=== PATIENT | female | born 1980 | race Caucasian/White ===

== ENCOUNTER 2018-01-07 02:56 | Emergency (ER) | payer OTHER ==
[2018-01-07 02:58] VITALS: BP 137/79; TEMP 36.4; O2SAT 98; Ht 167.6 cm
[2018-01-07 03:15] VITALS: PULSE 89
--- NOTE | 2018-01-07 03:32 | EMERGENCY ROOM VISIT NOTE ---
History Report prepared by Ryne: Hope Mejia Under the Supervision of: Dr. Diego Carrero M.D. First contact with patient: 02:58 Chief Complaint: ALCOHOL OVERDOSE Stated Complaint: ALCOHOL OVERDOSE History of Present Illness The patient is a 37 year old female who presents to the Emergency Room with complaints of an episode of alcohol overdose occurring prior to arrival. Per EMS , the patient was found on [facility] after being on a Work in Field tour. They report that she was stumbling around and someone called 911. The patient denies any injuries, drug use, and the chance of . HPI and ROS limited secondary to alcohol intoxication. Source of History: patient History Limited By: intoxication Onset: prior to arrival Position: other (global) Quality: other (alcohol overdose) Timing: other (episode) Note: The patient denies any injuries and any drug use. Review of Systems ROS limited secondary to patient intoxication and difficultly with redirection. Past Medical & Surgical Medical Problems: (1) No Known Active Medical Problems Family History No pertinent family history Social History Smoking Status: Current Every Day Smoker Alcohol Use: occasionally Marital Status: single Housing Status: lives alone Occupation Status: employed Current/Historical Medications No Active Prescriptions or Reported Meds Allergies Coded Allergies: No Known Allergies (Verified , 01/07/18) Physical Exam Vital Signs Date Time Temp Pulse Resp B/P (MAP) Pulse Ox O2 Delivery O2 Flow Rate FiO2 01/07/18 03:15 89 01/07/18 02:58 36.4 112 18 137/79 98 Room Air 01/07/18 02:58 98 Room Air Physical Exam GENERAL: Patient is heavily intoxicated. Difficulty redirecting. Smells of alcohol. Well appearing and in no acute distress. HEAD: No evidence of Trauma. AT/NC EYES: Injected conjunctiva. Normal EOM. Pupils equal/reactive. ENT: Mucous membranes moist, no nasal congestion. NECK: No step-offs, no adenopathy, no meningismus, trachea is midline. LUNGS: No dyspnea. Clear to auscultation and equal bilaterally. No wheeze, no rhonchi. HEART: Regular rate and rhythm. No murmurs, rubs, gallops appreciated. GI: Abdomen soft, nontender, no peritonitis. Bowel sounds positive. No masses appreciated. BACK: No midline tenderness, no stepoffs, no CVA tenderness EXTREMITIES: Normal motion all extremities, no cyanosis, no edema. NEUROLOGIC: Heavily intoxicated. Slurred speech. Awake, but not completely oriented. No acute motor or sensory deficits, no focal weakness, cranial nerves grossly intact. SKIN: No rash, no jaundice, no diaphoresis. Medical Decision & Procedures Laboratory Results 01/07/18 03:12 Test 01/07/18 03:12 Anion Gap 7.0 mmol/L (3-11) Estimated GFR () 120.2 Estimated GFR (Non- 103.7 BUN/Creatinine Ratio 15.1 (10-20) Calcium Level 7.7 mg/dl (8.5-10.1) Ethyl Alcohol mg/dL 230.0 mg/dl (0-3) Laboratory results as reviewed by me. ED Course 0301: The patient was evaluated in room A12B. A complete history and physical exam was performed. 0346: The patient's grandmother has arrived. 0347: Reevaluated the patient. Discussed results and discharge instructions with her and her grandmother: They verbalized understanding and agreement. The patient is ready for discharge. Medical Decision Differential: Alcohol Intoxication, Drug Intoxication, Electrolyte Abnormality, Trauma, Intracranial Event, Toxicological, Excited Delirium, Serotonin Syndrome , amongst other pathologies entertained. 37 yr old intoxicated beligerent female brought in by EMS after being found intoxicated on campus. Patient with no evidence nor history for trauma. Protecting airway and breathing comfortably throughout ED stay. EtOH positive. She was quite belligerent and non-cooperative but given her grandmother arrived who calmed her down i felt that no indication for sedation nor calling police at this time. Grandmother states she feels comfortable taking patient home. Medication Reconcilliation Current Medication List: was personally reviewed by me Blood Pressure Screening Patient's blood pressure: Normal blood pressure Blood pressure disposition: Did not require urgent referral Impression Primary Impression: Alcohol intoxication Scribe Attestation The scribe's documentation has been prepared under my direction and personally reviewed by me in its entirety. I confirm that the note above accurately reflects all work, treatment, procedures, and medical decision making performed by me. Departure Information Dispostion Home / Self-Care Prescriptions No Active Prescriptions or Reported Meds Referrals No Doctor, Assigned (PCP) Forms HOME CARE DOCUMENTATION FORM, IMPORTANT VISIT INFORMATION Patient Instructions [facility] Additional Instructions You were evaluated in emergency department for intoxication. This is a sign of Alcohol Abuse and should not be taken lightly. You had a blood alcohol level that was significantly elevated. Over the next 24 hours keep well hydrated and eat light meals. Don't drink any more alcohol. This is important. Please discuss this visit with your Primary Care Provider and/or your loved ones. Unless an exceptional circumstance, the Hospital DOES NOT contact anyone DURING your visit, nor is your Protected Medical Information released to anyone without your approval/request. This means we do not contact your Parents, the Police, etc. However, you will likely receive a bill from the Hospital and/or your Insurance company, which will usually be sent to the Primary Policy [place] (often one's Parents). Furthermore, as a student, your visit report will likely be sent to [facility] as your primary care provider, unless other Provider listed. If the Police were involved you will likely be cited for public intoxication. Please contact either [facility] Police or the [place] Police for further information. Call 911 or return to Emergency Department if you develop: Passing out, difficulty breathing, many episodes of vomiting, blood in vomit or stool, abdominal pain, fevers, or other severe symptoms. We are always here to help if you feel you need further evaluation or treatment.
[2018-01-07 03:46] LABS: BLOOD UREA NITROGEN 11 mg/dl (7-18); CALCIUM 7.7 mg/dl (8.5-10.1); CARBON DIOXIDE 22 mmol/L (21-32); CREATININE 0.73 mg/dl (0.60-1.20); GLUCOSE 126 mg/dl (70-99); POTASSIUM 3.3 mmol/L (3.5-5.1); SODIUM 139 mmol/L (136-145)
== END 2018-01-07 03:55 | disposition home or self-care (01) ==
LOC: EDBD 02:56 → C.EDA 02:57
DX: F10.929 Alcohol use, unspecified with intoxication, unspecified (principal); Y90.7 Blood alcohol level of 200-239 mg/100 ml; F17.210 Nicotine dependence, cigarettes, uncomplicated